=== PATIENT | male | born 1955 | race Caucasian/White ===

== ENCOUNTER 2021-04-06 11:00 | Outpatient (RCR) | payer OTHER, SELFPAY ==
--- NOTE | 2020-12-18 09:48 | PCCPR ---
ABSENT TODAY, ERIC RECEIVED 2ND COVID SHOT YESTERDAY AND IS NOT FEELING WELL.
--- NOTE | 2021-02-26 11:41 | PCCPR ---
Absent Alfredo called states he is having leg cramps today and will not be in.
--- NOTE | 2021-04-09 10:38 | PCCPR ---
Absent today, Alfredo not feeling well.
== END 2021-04-06 23:59 | disposition home or self-care (01) ==
LOC: ANHCPREHAB 11:00
PROVIDERS: PCP Physician Assistant; Visit Provider Family Medicine
DX: J12.82 Pneumonia due to coronavirus disease 2019 (principal)
CPT/HCPCS: 97150; G0239; G0424

== ENCOUNTER 2021-04-13 09:30 | Outpatient (RCR) | payer OTHER, SELFPAY | END 2021-04-13 16:30 | disposition home or self-care (01) | LOC: ANHCPREHAB 09:30 | PROVIDERS: PCP Physician Assistant; Visit Provider Family Medicine | DX: J12.82 Pneumonia due to coronavirus disease 2019 (principal) | CPT/HCPCS: 97150; G0239; G0424 ==